=== PATIENT | female | born 1970 | race Caucasian/White ===

== ENCOUNTER 2018-07-22 13:31 | Emergency (ER) | payer SELFPAY, MEDICAID ==
[2018-07-22] MEDS: HYDROCODONE/APAP (5/325) TAB PO (15:42)
[2018-07-22] MEDS: KETOROLAC 30 MG INJ IM (15:43)
== END 2018-07-22 17:40 | disposition home or self-care (01) ==
LOC: FTE 17:40
DX: S80.01XA Contusion of right knee, initial encounter (principal); S80.02XA Contusion of left knee, initial encounter; S33.9XXA Sprain of unspecified parts of lumbar spine and pelvis, initial encounter; W18.39XA Other fall on same level, initial encounter; Y92.811 Bus as the place of occurrence of the external cause
CPT/HCPCS: 72040; 72100; 73564-50; 81025; 96372; 99284-25